=== PATIENT | female | born 1985 | race Caucasian/White ===

== ENCOUNTER 2020-07-28 13:53 | Emergency (ER) | payer OTHER, SELFPAY ==
[2020-07-28] VITALS (11 sets, daily range): BP systolic 137–171; BP diastolic 81–111; PULSE 74–99; RESP 14–20; TEMP 36.3; O2SAT 99–100; BMI 24.9
--- NOTE | 2020-07-28 14:02 | EKG12_ITS ---
Test Reason : REPEAT CP Blood Pressure : / mmHG Vent. Rate : 082 BPM Atrial Rate : 082 BPM P-R Int : 120 ms QRS Dur : 080 ms QT Int : 372 ms P-R-T Axes : 034 046 047 degrees QTc Int : 434 ms Normal sinus rhythm Normal ECG Confirmed by EMMANUEL STEVEN, MARIAELENA ([id number]), online editor PANDA RFANKLIN ([id number]) on 08/01/2020 2:45:00 PM Referred By: Confirmed By:FLORENCIO BENITEZ MD
--- NOTE | 2020-07-28 14:15 | ED.DCSUM_ITS ---
History of Present Illness Chief Complaint: Chest Pain Informant: Patient Onset: Today Narrative: Presents with sudden chest pressure while driving to see her aunt in the area. She is from [place]. States dyspnea. Started an hour ago. States she started having nausea yesterday. Thrown up today. No hematemesis. She is status post a Whipple's procedure this past [facility] secondary to reported grooves pancreatitis. Still has a wound VAC followed by surgeon up there. Denies leg swelling or cramping. History of hypertension hypercholesterolemia and tobacco. Denies diabetes. Denies any family history of sudden cardiac or MIs at a young age. No previous chest pressures in the past. States 8 out of 10 pain. Denies any allergies. States is having some stomach pains due to the vomiting. Prior similar symptoms: No Past Medical History - Allergies and Home Meds Allergies/Adverse Reactions: Allergies No Known Allergies Allergy (Verified 07/28/20 13:56) Primary Care Physician: Tena Carlson MD [Primary Care Provider] - Past Medical History: - - Hypertension, hyperlipidemia, grooved pancreatitis Surgical History: - - Whipple's procedure, single oophrectomy Smoking Status: Current every day smoker Review of Systems General: Denies: Chills, Fever, Sweats Eyes: Denies: Visual changes - bilaterally, Diplopia ENT: Denies: Rhinorrhea, Sore throat Cardiovascular: Reports: Chest pain. Denies: Palpitations Respiratory: Reports: Dyspnea. Denies: Cough, Dyspnea on exertion Gastrointestinal: Reports: Abdominal pain, Nausea, Vomiting. Denies: Diarrhea, Melena, Hematochezia Genitourinary: Denies: Dysuria, Hematuria, Frequency Musculoskeletal: Denies: Back pain, Extremity Pain Skin: Denies: Rash, Wounds Neurological: Denies: Headache, Weakness, Numbness Physical Exam Vital Signs/Narrative: Vital Signs Temp Pulse Resp BP Pulse Ox 07/28/20 13:54 97.4 F L 88 18 142/111 H 100 Inital Vital Signs reviewed: Yes General: Well nourished, Well developed, - - Uncomfortable Head: Normocephalic, Atraumatic Eyes: Perrl, EOMI ENT: Moist mucous membranes, No rhinorrhea Neck: Supple, Nontender Cardiovascular: Regular rate, Regular rhythm, No murmurs Respiratory: No distress, CTA bilaterally, Chest nontender Abdomen: Soft, Nontender, Nondistended, Normal bowel sounds, - - Midline upper abdominal scar with wound VAC approximately 3 cm diameter in upper wound region. There is no active drainage. No surrounding erythema. Back: Nontender, Normal Inspection Extremities: Nontender, No edema Skin: Normal color, No rash Neurological: Alert, Oriented x3, Cranial nerves II-XII grossly intact, Normal Strength, Normal Sensation Psychological: Normal affect, Normal Mood Diagnostic/Tx/Re-eval Clinical Impression(s) from Imaging Studies Chest X-Ray 07/28/20 14:27 IMPRESSION: Normal x-ray examination of the chest. Electronically Signed: Hector Esposito, at 14:46 EDT , Service support , Abdomen/Pelvis CT 07/28/20 16:09 IMPRESSION: Ovoid mixed density mass in the right upper quadrant as described above. Differential includes postoperative fat necrosis and evolving phlegmon. Portal vein thrombosis. Probable partial hepatic artery thrombosis on the right. An underlying evolving hepatic infarct is not excluded. Cystic lesion in the pancreatic tail. Differential includes pseudocyst and neoplasm. Ascites. Multiple left ovary cyst. Electronically Signed: Andre Fischer MD at 18:16 EDT Tel , Service support , ADDENDUM: 07/28/20 1830 IMPRESSION: Ovoid mixed density mass in the right upper quadrant as described above. Differential includes postoperative fat necrosis and evolving phlegmon. Portal vein thrombosis. Probable partial hepatic artery thrombosis on the right. An underlying evolving hepatic infarct is not excluded. Cystic lesion in the pancreatic tail. Differential includes pseudocyst and neoplasm. Ascites. Multiple left ovary cyst. N.B. : The above information has been verbally conveyed by Andre Fischer MD to Ayush Lund MD, on 07/28/2020 18:23:05 (ET). Electronically Signed: Andre Fischer MD at 18:16 EDT Tel , Service support , Chest CTA 07/28/20 16:09 IMPRESSION: Normal CTA chest examination, without a demonstrated pulmonary embolism or aortic dissection. Electronically Signed: Andre Fischer MD at 18:25 EDT Tel , Service support , Abnormal Lab Results 07/28/20 07/28/20 07/28/20 14:20 14:20 14:20 WBC 10.9 RBC 5.05 Hgb 12.8 Hct 42.0 MCV 83.2 MCH 25.3 L MCHC 30.5 L RDW Std Deviation 51.0 H RDW Coeff of Micaela 17.0 H Plt Count 359 MPV 9.6 Immature Gran % (Auto) 0.300 Neut % (Auto) 72.2 H Lymph % (Auto) 19.8 Bremer % (Auto) 5.8 Eos % (Auto) 1.4 Baso % (Auto) 0.5 Absolute Neuts (auto) 7.9 H Absolute Lymphs (auto) 2.16 Nucleated RBC % 0 PT Cancelled INR Cancelled APTT D-Dimer Quant (PE/DVT) Cancelled Sodium 138 Potassium 4.1 Chloride 106 Carbon Dioxide 26.0 Anion Gap 6 BUN 4 L Creatinine 0.54 L Estim Creat Clear Calc 125.57 Est GFR (MDRD) Af Amer 165 Est GFR (MDRD) Non-Af 136 BUN/Creatinine Ratio 7.4 L Glucose 95 Calcium 9.1 Total Bilirubin Direct Bilirubin AST ALT Alkaline Phosphatase Troponin I < 0.015 Total Protein Albumin Globulin Lipase Serum , Qual 07/28/20 07/28/20 07/28/20 14:20 14:20 15:00 WBC RBC Hgb Hct MCV MCH MCHC RDW Std Deviation RDW Coeff of Micaela Plt Count MPV Immature Gran % (Auto) Neut % (Auto) Lymph % (Auto) Bremer % (Auto) Eos % (Auto) Baso % (Auto) Absolute Neuts (auto) Absolute Lymphs (auto) Nucleated RBC % PT 15.7 H INR 1.3 APTT D-Dimer Quant (PE/DVT) 6.83 H* Sodium Potassium Chloride Carbon Dioxide Anion Gap BUN Creatinine Estim Creat Clear Calc Est GFR (MDRD) Af Amer Est GFR (MDRD) Non-Af BUN/Creatinine Ratio Glucose Calcium Total Bilirubin 0.30 Direct Bilirubin 0.08 AST 20 ALT 12 L Alkaline Phosphatase 170 H Troponin I Total Protein 6.6 Albumin 2.7 L Globulin 3.9 Lipase 1411 H Serum , Qual 07/28/20 07/28/20 07/28/20 15:00 16:28 18:15 WBC RBC Hgb Hct MCV MCH MCHC RDW Std Deviation RDW Coeff of Micaela Plt Count MPV Immature Gran % (Auto) Neut % (Auto) Lymph % (Auto) Bremer % (Auto) Eos % (Auto) Baso % (Auto) Absolute Neuts (auto) Absolute Lymphs (auto) Nucleated RBC % PT INR APTT 37.6 H D-Dimer Quant (PE/DVT) Sodium Potassium Chloride Carbon Dioxide Anion Gap BUN Creatinine Estim Creat Clear Calc Est GFR (MDRD) Af Amer Est GFR (MDRD) Non-Af BUN/Creatinine Ratio Glucose Calcium Total Bilirubin Direct Bilirubin AST ALT Alkaline Phosphatase Troponin I 0.239 H Total Protein Albumin Globulin Lipase Serum , Qual NEGATIVE - EKG Initial EKG Interpretation: Sinus Rhythm - Sinus rate of 96, no ST changes. Isolated T wave inversion in leads III. Follow-up EKG Interpretation: Sinus Rhythm - Sinus rate of 82 no changes from initial EKG. - Medical Decision Making Patient with chest pain normal EKG. Treated with initial nitroglycerin with no improvement. Cardiac work-up negative initially. With her recent surgery d- dimer obtained which was elevated. She was treated with morphine Zofran for nausea vomiting symptom additional Dilaudid and Phenergan was required. CT of the chest was negative for any PE or acute chest pathology. Abdomen pelvis was obtained due to her surgery 3 months ago with her belly pain and vomiting. Discussed with radiology concerns for portal vein thrombus, possible hepatic artery thrombus, possible early hepatic infarct, questioning right upper quadrant fat necrosis less likely abscess per radiologist. Her white count was normal. She was started on heparin drip for these concerns. Her lipase did return elevated at 1400 adding to her pancreatitis. Liver enzymes were normal. With postop complications concerns I did speak with her surgeon [facility], discussed the findings and concerns. He did report there was a right hepatic artery injury during the surgery that was repaired. Agrees with the heparin drip at this time. I also discussed the elevated troponin, he cleared for aspirin with the heparin drip. He is accepted under his service to telemetry for further management. Lactic acid is pending. Patient vitals remained stable not hypoxic, not hypotensive is afebrile with a normal white count. - Critical Care Time Critical care time (excluding procedures): 30-74 minutes, Discussing w/Patient &/or Family/Application Engineer, Discussing w/Consultants, Arranging Admission or Transfer ED Disposition - Plan for ED Patient: Disposition: Acute Care Hospital - Other Diagnosis: Postoperative complication, Acute pancreatitis, Hepatic vein thrombosis, Hepatic artery thrombosis, Chest pain, Elevated troponin, Status post Whipple's procedure Referrals: Tena Carlson MD [Primary Care Provider] -
[2020-07-28] MEDS: 0.9% Normal Saline 1,000 ML 150 ML IV (14:27)
--- NOTE | 2020-07-28 14:27 | RAD_ITS ---
STUDY: X-RAY CHEST REASON FOR EXAM: Female, 35 years old. CHEST PAIN x1 HR -- HX OF WHIPPLE PROCEDURE IN [facility] TECHNIQUE: Single AP portable view of the chest. COMPARISON: None. FINDINGS: EKG electrodes are seen. The lungs are clear and expanded. There is no demonstrated pleural abnormality. Normal size heart. Normal mediastinum and malcom. Normal visualized pulmonary arteries. Normal visualized aortic arch and descending thoracic aorta. Normal visualized thoracic spine. Normal visualized ribs, clavicles, and shoulders. There is no demonstrated abnormality of the visualized soft tissue structures of the upper abdomen. RAD/Chest 1 View (Portable) IMPRESSION: Normal x-ray examination of the chest. Electronically Signed: Hector Esposito, at 14:46 EDT , Service support ,
[2020-07-28] MEDS: Ondansetron 4 MG/2 ML Vial IV ×2 (14:28→19:43)
[2020-07-28] MEDS: Nitroglycerin SL (ED/IMG/CATH) 0.4 MG TABLET SUBLINGUAL ×3 (14:29→14:43)
[2020-07-28 14:42] LABS: Absolute Lymphocyte Count 2.16 X10^3/uL (0.83-4.51); Absolute Neutrophil Count 7.9 X10^3/uL (2.0-7.7); Basophil# 0.05 X10^3/uL; Basophil% 0.5 % (0-1); Eosinophil# 0.15 X10^3/uL; Eosinophils% 1.4 % (0-5); Hemoglobin 12.8 g/dL (12.0-15.0); Lymphocyte # 2.16 X10^3/ul (4.0); Lymphocyte % 19.8 % (19-41); Mean Corp Hgb Conc 30.5 g/dL (32-36); Mean Corpuscular Hgb 25.3 pg (27.0-32.0); Mean Corpuscular Volume 83.2 fL (81-99); Mean Platelet Vol. 9.6 fl (6.2-12.0); Monocyte# 0.63 X10^3/uL; Monocyte% 5.8 % (0-10); NRBC Flagged by Analyzer 0 % (0-5); Neutrophil # 7.88 X10^3/uL (2.7-7.7); Neutrophil % 72.2 % (47-70); Platelet Count 359 K/mm3 (150-450); Red Blood Count 5.05 M/mm3 (4.2-5.4); White Blood Count 10.9 K/mm3 (4.4-11.0)
[2020-07-28 14:44] LABS: Anion Gap 6 (5-15); BUN 4 mg/dL (7-18); BUN/Creat Ratio 7.4 RATIO (10-20); Calcium,Total 9.1 mg/dL (8.5-10.1); Chloride 106 mmol/L (98-107); Creatinine, Serum 0.54 mg/dL (0.55-1.02); EST Glomerular Filtration Rate 136 mL/min (>60); Est Glom Filt Rate - Afr Amer 165 mL/min (>60); Estimated Creatinine Clearance 125.57 ml/min; Glucose 95 mg/dL (74-106); Potassium 4.1 mmol/L (3.5-5.1); Sodium Level 138 mmol/L (136-145)
--- NOTE | 2020-07-28 14:48 | NURSING ---
NEED BLUE TOP. FOR COAGS AND DDIMER
--- NOTE | 2020-07-28 15:11 | EKG12_ITS ---
Test Reason : CP Blood Pressure : / mmHG Vent. Rate : 096 BPM Atrial Rate : 096 BPM P-R Int : 116 ms QRS Dur : 080 ms QT Int : 354 ms P-R-T Axes : 053 040 031 degrees QTc Int : 447 ms Normal sinus rhythm Normal ECG Confirmed by EMMANUEL STEVEN, MARIAELENA ([id number]), desk editor PANDA FRANKLIN ([id number]) on 08/01/2020 2:45:16 PM Referred By: ERDR Confirmed By:FLORENCIO BENITEZ MD
[2020-07-28] MEDS: Morphine 4 MG/ML Syringe IV (15:14)
[2020-07-28 15:27] LABS: International Normalized Ratio 1.3; Prothrombin Time (Protime)PT. 15.7 SECONDS (11.7-14.9)
[2020-07-28 15:40] LABS: D-Dimer Quantitative (DVT/PE) 6.83 FEU/ug/m (0.27-0.49)
--- NOTE | 2020-07-28 16:09 | CT_ITS ---
We are attempting to reach an attending provider to discuss findings. An addendum with communication details will be sent when the communication is complete. STUDY: CT ABDOMEN AND PELVIS WITH CONTRAST REASON FOR EXAM: Female, 35 years old. ABD PAIN, ELEVATED D-DIMER, S/P WHIPPLE RADIATION DOSAGE (If Supplied By Facility): CTDIvol = ( 8.29 ) mGy, DLP = ( 1615.09 ) mGycm TECHNIQUE: Transaxial images were obtained from the dome of the diaphragm to the symphysis pubis without oral contrast. IV 100mL Isovue-370 was administered. Sagittal and coronal images were reconstructed. Individualized dose optimization techniques were used for this CT. COMPARISON: None. FINDINGS: The visualized lung bases are unremarkable. The visualized portions of the heart are within normal limits. There is decreased attenuation of the liver consistent with steatosis. Heterogeneous hepatic enhancement. An underlying hepatic infarct is not excluded. Borderline splenomegaly. A WHIPPLE procedure has been performed. A cystic lesion is present in the pancreatic tail measuring 24 x 17 mm on image 31 of series 3. Mild ascites. An ovoid mass is present in the right upper quadrant measuring up to 8.2 x 4.7 cm on coronal image 56. It has an internal attenuation value of -53 [place] units. Differential includes a masslike region of postoperative fat necrosis and possibly evolving phlegmon. Partial right-sided hepatic artery thrombosis is suspected. Portal vein thrombus is visible on image 30 of series 7. Normal bilateral adrenal glands. Normal right kidney. Normal left kidney. Normal colon. The appendix is visualized and appears normal. Normal abdominal aorta. Normal inferior vena cava. Normal retroperitoneum. Normal urinary bladder. Extensive free pelvic fluid. Multiple left ovary cysts, the largest measuring up to 32 mm. Postoperative changes of the anterior abdominal wall. Packing material in place. Normal osseous structures. CT/Abdomen/Pelvis W IV Cont ONLY IMPRESSION: Ovoid mixed density mass in the right upper quadrant as described above. Differential includes postoperative fat necrosis and evolving phlegmon. Portal vein thrombosis. Probable partial hepatic artery thrombosis on the right. An underlying evolving hepatic infarct is not excluded. Cystic lesion in the pancreatic tail. Differential includes pseudocyst and neoplasm. Ascites. Multiple left ovary cyst. Electronically Signed: Andre Fischer MD at 18:16 EDT Tel , Service support ,
--- NOTE | 2020-07-28 16:09 | CT_ITS ---
STUDY: CTA CHEST REASON FOR EXAM: Female, 35 years old. ABD PAIN, ELEVATED D-DIMER, S/P WHIPPLE RADIATION DOSAGE (If Supplied By Facility): CTDIvol = ( 8.29 ) mGy, DLP = ( 1615.09 ) mGycm TECHNIQUE: The examination was performed with the intravenous administration of IV 100mL Isovue-370. Post-processing of the angiographic images was performed, with multiplanar reformation and 3D reconstruction. Individualized dose optimization techniques were used for this CT. COMPARISON: None. FINDINGS: Normal enhancement of the main pulmonary artery and right and left pulmonary arteries. Normal enhancement of the bilateral peripheral pulmonary arteries. There is no demonstrated pulmonary embolism. Normal thoracic aorta and visualized great vessels. There is no demonstrated aortic dissection. Normal heart and pericardium. Normal mediastinum. Normal hilar regions. Normal visualized trachea and bronchi. The lungs are well expanded. Normal pulmonary parenchyma. Normal pleura. Normal chest wall structures. Normal osseous structures. CT/CTA Chest W/WO Contrast IMPRESSION: Normal CTA chest examination, without a demonstrated pulmonary embolism or aortic dissection. Electronically Signed: Andre Fischer MD at 18:25 EDT Tel , Service support ,
[2020-07-28 16:14] LABS: AST(SGOT) 20 U/L (15-37); Alanine Aminotransfer ALT/SGPT 12 U/L (13-56); Albumin, Serum 2.7 g/dL (3.2-5.0); Alkaline Phosphatase 170 U/L (45-117); Bilirubin, Direct 0.08 mg/dL (0.00-0.30); Globulin 3.9 g/dL (2.2-4.2); Protein, Total 6.6 g/dL (6.4-8.2)
[2020-07-28] MEDS: Mag Hydrox/Al Hydrox/Simeth 30 ML UDC PO (16:17)
[2020-07-28 16:24] LABS: Lipase 1411 U/L (73-393)
[2020-07-28 16:51] LABS: Internal QC Validated? YES +Cl - CLEAR BKGD; Pregnancy, Serum, hCG Quali. NEGATIVE Negative
[2020-07-28] MEDS: HYDROmorphone 1 MG/ML Syringe IV ×3 (17:43→20:58)
[2020-07-28] MEDS: proMETHazine 25 MG/ML Syringe 12.5 MG IV (17:43)
[2020-07-28 18:53] LABS: Partial Thromboplast Time 37.6 Seconds (24.1-36.2)
[2020-07-28] MEDS: Heparin Injection (Vial) 5,000 UNIT/ML VIAL 4000 UNIT IV (19:29)
[2020-07-28] MEDS: Aspirin 81 MG TAB.CHEW 324 MG PO (19:30)
[2020-07-28 20:27] LABS: Lactic Acid 0.7 mmol/L (0.4-1.9)
== END 2020-07-28 20:58 | disposition short-term general hospital (02) ==
PROVIDERS: Emergency Provider Emergency Medicine; PCP Family Medicine
DX: K91.89 Other postprocedural complications and disorders of digestive system (principal); Y83.8 Other surgical procedures as the cause of abnormal reaction of the patient, or of later complication, without mention of misadventure at the time of the procedure; K85.90 Acute pancreatitis without necrosis or infection, unspecified; I74.8 Embolism and thrombosis of other arteries; I81 Portal vein thrombosis; I10 Essential (primary) hypertension; E78.00 Pure hypercholesterolemia, unspecified; E78.5 Hyperlipidemia, unspecified; Z79.899 Other long term (current) drug therapy; F17.200 Nicotine dependence, unspecified, uncomplicated
CPT/HCPCS: 36415; 71045; 71275; 74177; 80048; 80076; 83605; 83690; 84484; 84703; 85025; 85379; 85610; 85730; 93005; 96361; 96365; 96375; 96376; 99285; J7030; Q9967; A4216; J2405